=== PATIENT | male | born 1995 | race African-American/Black ===

== ENCOUNTER → 2016-07-25 | Outpatient (CLI) | payer OTHER | LOC: COL.RAD 07-24 14:15 | DX: M19.031 Primary osteoarthritis, right wrist (principal); M25.531 Pain in right wrist | CPT/HCPCS: A9585; Q9967 ==

== ENCOUNTER 2017-04-10 10:59 | Outpatient (CLI) | payer OTHER, MEDICAID ==
[~2017-04-10] VITALS: Ht 190.5 cm; Wt 111.3 kg
[2017-04-10 12:34] VITALS: BP 98/43; PULSE 44; TEMP 97.6
[2017-04-10 13:16] LABS: MUCOUS Present /lpf; PH 5 (5-8); SQUAMOUS EPITHELIAL None Seen /hpf; URINE APPEARANCE Clear; URINE BACTERIA None Seen /hpf; URINE BILIRUBIN Negative (NEGATIVE); URINE BLOOD Negative (NEGATIVE); URINE COLOR Yellow; URINE GLUCOSE Negative (NEGATIVE); URINE KETONE Negative (NEGATIVE); URINE LEUKOCYTE ESTERASE Negative (NEGATIVE); URINE PROTEIN(semi-quant) 1+ (NEGATIVE); URINE RBC 0-2 /hpf
[2017-04-10 13:21] LABS: COLLECTION METHOD CLEAN CATCH
== END 2017-04-10 13:56 | disposition home or self-care (01) ==
LOC: COL.RAD 10:59 → EUO 10:59 → COL.RAD 13:56
PROVIDERS: Family Medicine
DX: R10.30 Lower abdominal pain, unspecified (principal); R11.0 Nausea
CPT/HCPCS: J2405; J7042; Q9967